=== PATIENT | male | born 1935 | race Caucasian/White ===

== ENCOUNTER 2016-07-14 04:09 | Observation (INO) | payer MEDICARE, OTHER ==
--- NOTE | ~2016-07-14 | HP ---
History And Physical [facility] [address] [place]. [address] NAME: SUSANNA PARMAR : 31 STATUS : ADM Mariaelena PAT#: [id number] AGE: 80 ADM/REG DATE : 07/14/16 MR#: [id number] REPORT SERV DATE: 07/14/16 DICTATED BY: SILVINO CHAPMAN DATE: 07/14/16 REPORT STATUS : Draft TRANSCRIBED BY: MODL DATE: 07/14/16 DATE OF ADMISSION: 07/14/2016 [employer]IVERY SPECIALIST: Luis Myers M.D. CHIEF COMPLAINT: Chest tightness. HISTORY OF PRESENT ILLNESS: A very pleasant 80-year-old white gentleman with identified CAD, not requiring PCI in 05/2015. The patient states that on 07/13 in the afternoon, he had an "indigestion" feeling in the center of his chest that did not radiate elsewhere, these symptoms occurred at rest. There was no exertional component described. He reports some associated shortness of breath. Denies nausea, diaphoresis, or dizziness. He does report some belching, but states that is unchanged for him. He describes the chest discomfort as a tightness. He reports two to three similar events over the past month. He does not have nitroglycerin available to him. No intervention or medication was taken at home. At its most intense, he rates the chest pain of 3 to 4/10 and it has remained constant, he describes it as a dull ache. There is seemingly no pattern reported, no change in activity, no exertional component described. The patient states he did do cardiac rehab for 3 months in late 2015 with no change in his shortness of breath or energy at that time. The patient self reports a personal history of a heart attack in 1993 with no intervention. History of stroke 08/2013 with no deficit. Denies history of PE or DVT. The patient denies any recent fever or chills. Describes rare palpitations that are transient in nature. No syncopal events. Denies PND or orthopnea. PAST MEDICAL HISTORY: 1. CAD. a. On 05/22/2015, cath by Dr. Yoder revealing 2 vessel CAD, not involving the proximal LAD with significant disease in the RCA and OM1 with [id number] collaterals supplying the RCA. Moderate LAD lesion with FFR of 0.82, EF of 55%. Medical management recommended. 2. Chronic atrial fibrillation, rate controlled on Eliquis. 3. History of stroke 08/2013, no deficit. 4. Hypertension. 5. Dyslipidemia. 6. Denies diabetes. 7. GERD. 8. Scoliosis. 9. Remote tobacco abuse. 10.Self reports SC in 1993, no intervention. SURGICAL HISTORY: 1. Bilateral knee surgery. 2. Right hip replacement. 3. Right shoulder replacement. 4. Bilateral carpal tunnel. History And Physical [address] [address] NAME: SUSANNA PARMAR : 31 STATUS : ADM Mariaelena PAT#: [id number] AGE: 80 ADM/REG DATE : 07/14/16 MR#: [id number] REPORT SERV DATE: 07/14/16 DICTATED BY: SILVINO CHAPMAN DATE: 07/14/16 REPORT STATUS : Draft TRANSCRIBED BY: EASTON DATE: 07/14/16 5. Left upper arm surgery muscle repair. 6. Cholecystectomy. SOCIAL HISTORY: He is , does not have any children. He is retired from [employer]. Does not have an exercise routine although he is active around his property. Quit smoking in 1951, consumes an occasional beer. Denies illicits. FAMILY HISTORY: No embolic events reported in first-degree relatives. A brother with atrial fibrillation. REVIEW OF SYSTEMS: A 14-point review of systems performed, significant for HPI. No other contributory diagnoses identified. ALLERGIES: NO KNOWN DRUG ALLERGIES. HOME MEDICINES: Eliquis 5 mg twice daily, vitamin C 1000 mg daily, Lasix 40 mg daily, glucosamine 1500 mg twice daily, metoprolol tartrate 50 mg twice daily, multivitamin daily, Prilosec 20 mg daily, rosuvastatin 10 mg daily, and Tylenol 2 tablets twice daily. PHYSICAL EXAMINATION: VITAL SIGNS: Bilateral blood pressures on arrival, right 113/69, left 109/70, pulse 56, respirations 10, temperature 97.6, O2 saturation 97% on room air, height 5 feet 6 inches, weight 138 pounds. BMI 22. GENERAL: Cooperative, in no apparent distress. HEENT: Pupils 2 mm, sclera nonicteric. Nares patent. Moist mucous membranes. No xanthelasma. NECK: Trachea midline, no thyromegaly. No JVD. No bruits. LYMPH: No cervical lymphadenopathy. No supraclavicular lymphadenopathy. RESPIRATORY: Unlabored respirations. Breath sounds clear bilaterally to posterior auscultation. No wheezes or rhonchi. Tender to palpation, midchest. CARDIOVASCULAR: Irregularly irregular rate with a variable S1 and S2. No murmur, rub, or gallop appreciated. Normal carotids. Trace ankle edema. ABDOMEN: Soft, nontender, nondistended, normal bowel sounds auscultated throughout. No organomegaly. SKIN: Warm, dry extremities. No pallor, or cyanosis. PSYCHIATRIC: Appropriate affect. Alert, oriented x3. LABORATORY DATA: Troponin 0.04 and 0.05, potassium 3.8, BUN 20, creatinine 1.02, glucose 90, magnesium 2.2, lipase 267. WBC 4.8, hemoglobin 12.7, hematocrit 37.0, platelet count 178,000, PT 18.3, INR 1.5. EKG atrial fib/flutter, LAD, LVH, inferior Q-waves, PRWP. Echo, 04/2015: EF of 55%. Moderate LVH. Mild . [id number] AV regurgitation with mild MR. MPI 04/2015: Gabriel stage 1, 3.47 minutes, 5 METS. No ischemia, frequent PVCs and 2 ventricular couplets noted. History And Physical [address] [place]. [address] NAME: SUSANNA PARMAR : 31 STATUS : ADM Mariaelena PAT#: [id number] AGE: 80 ADM/REG DATE : 07/14/16 MR#: [id number] REPORT SERV DATE: 07/14/16 DICTATED BY: SILVINO CHAPMAN DATE: 07/14/16 REPORT STATUS : Draft TRANSCRIBED BY: MODL DATE: 07/14/16 Cath 05/2015 (Paresh): RCA diffuse 90% with collaterals, 50% mid LAD with FFR of 0.82, medical management recommended. EF of 55%. ASSESSMENT AND PLAN: 1. Chest pain with atypical features and reproducible on exam. The patient will be held n.p.o. for probable MPI on 07/15/2016. We will hold Eliquis, discuss need for heparin bridge with rounding physician. If anything suggestive of ischemia, Cardiology referral will be initiated. Otherwise, the patient will be asked to follow up with PCP and Dr. Myers as appropriate, further recommendations forthcoming. 2. Coronary artery disease with identified 2 vessel disease, 05/2015. No history of PCI per the patient's report. Continue home medications. 3. Chronic atrial fibrillation, rate controlled. Consider heparin bridge, if Eliquis to be held for further cardiac testing such as need for cardiac catheterization. MPI 07/15/2016, we will resume Eliquis if cardiac cath not warranted. 4. Hypertension, well controlled. Continue home medications. 5. Dyslipidemia, continue statin. JAVI/MODL JESUS Walters, BREAKFAST ATTENDANT-BC / [id number] CC: JESUS Walters, BREAKFAST ATTENDANT-BC Beto Rudolph M.D. CPOU Luis Myers M.D.
[2016-07-14 00:55] LABS: BASOPHILS 0.8 %; BASOPHILS ABSOLUTE 0.04 10/3/uL (0.0-0.16); EOSINOPHILS 2.3 %; EOSINOPHILS ABSOLUTE 0.11 10/3/uL (0.0-0.53); HEMOGLOBIN 12.7 g/dL (13.6-17.8); IMMATURE GRANULOCYTES 0.2 %; IMMATURE GRANULOCYTES ABSOLUTE 0.01 10/3/uL (0.0-0.11); LYMPHOCYTES 33.7 %; LYMPHOCYTES ABSOLUTE 1.63 10/3/uL (0.67-4.30); MEAN CORPUS HGB CONC 34.3 g/dL (32.0-36.0); MEAN CORPUSCULAR HEMOGLOB 33.2 pg (26.0-34.0); MEAN CORPUSCULAR VOLUME 96.9 fL (80-100); MEAN PLATELET VOLUME 9.9 fL (9.2-13.0); MONOCYTES 9.9 %; MONOCYTES ABSOLUTE 0.48 10/3/uL (0.21-1.20); NEUTROPHILS 53.1 %; NEUTROPHILS ABSOLUTE 2.57 10/3/uL (2.02-8.40); PLATELET COUNT 178 10/3/uL (150-400); RBC DISTRIBUTION WIDTH 13.7 % (12.0-16.0); RED CELL COUNT 3.82 10/6/uL (4.7-6.1); WHITE BLOOD CELLS 4.8 10/3/uL (4.5-10.5)
[2016-07-14 00:58] LABS: MANUAL DIFF NO %
[2016-07-14 01:04] LABS: INTERNATIONAL NORMAL RATI 1.5 UNITS (-); PARTIAL THROMBO TIME 48.5 SEC (22.5-37.2); PROTIME (NOT ORD) 18.3 SEC (12.0-14.5)
[2016-07-14 01:11] LABS: BUN (BLOOD UREA NITROGEN) 20 MG/DL (6-23); CHEST PAIN PROFILE TAT 0 Hrs 22 Mins; CHLORIDE, SERUM 99 MMOL/L (96-112); CREATININE 1.02 MG/DL (0.70-1.30); GFR AFRICAN AMERICAN 79 ML/MIN (>=60); GFR NON AFRICAN AMERICAN 68 ML/MIN (>=60); GLUCOSE, SERUM 90 MG/DL (60-99); POTASSIUM, SERUM 3.8 MMOL/L (3.5-5.3); SODIUM, SERUM 134 MMOL/L (135-148); TROPONIN I 0.04 NG/ML (<0.05)
[2016-07-14 01:13] LABS: CALCIUM, SERUM 9.4 MG/DL (8.5-10.4); CO2 (CARBON DIOXIDE) 34 MMOL/L (24-34)
[2016-07-14 03:32] LABS: ALBUMIN 4.1 G/DL (3.5-5.0); ALKALINE PHOSPHATASE 144 U/L (45-117); DIRECT BILIRUBIN 0.3 MG/DL (0.0-0.4); INDIRECT BILIRUBIN(NOT ORDER) 0.4 MG/DL (0.1-0.9); SGOT(AST) 30 U/L (5-40); SGPT(ALT) 28 U/L (5-65); TOTAL BILIRUBIN 0.7 MG/DL (0-1.2); TOTAL PROTEIN 7.5 G/DL (6.0-8.5)
[~2016-07-14 04:09] MED LIST: ACIDOPHILU1 PO; ADVIL PO; CALTRAT600 PO; CELEBREX2 PO; CENTRUM TAB1 TAB PO; COSAMIN DS1 TAB PO; COUMADIN3 MG PO; COUMADIN4 MG PO; CRESTOR10 PO; CRESTOR5 MG PO; ELIQUIS 5 MG TAB5 MG PO; ESTRADIOL1 MG PO; FOSAMAX70 MG PO; GLUCCHONDR PO; GLUCOSAMINEPO PO; IBU400 PO; IMDUR30 PO; L20 PO; L40 PO; LOP50 PO; LOZOLTAB PO; MOBIC7.5 PO; MULTIVIT/MIN PO; MULTIVITAMI1 PO; NEUR100 PO; NEUR300 PO; NEXIUM40 PO; PLAQ200B PO; PRILO PO; PRILOSEC OTC20 MG PO; TYLENOL ARTH650 MG PO; ULTRAM50 PO; VASOTEC10 PO; VITC500 PO; ZETIA PO
[2016-07-14] MEDS ORDERED: GLUCOSAMINEPO PO (04:41)
[2016-07-14] MEDS ORDERED: MULTIPLE VIT PO (04:42)
[2016-07-14] MEDS ORDERED: LOP50 PO (04:43)
[2016-07-14] MEDS ORDERED: ELIQUIS 5 MG TAB5 MG PO (04:43)
[2016-07-14] MEDS ORDERED: L40 PO (04:44)
[2016-07-14] MEDS ORDERED: CRESTOR10 PO (04:46)
[2016-07-14] MEDS ORDERED: VITC500 PO (04:49)
[2016-07-14] MEDS ORDERED: PRILO PO (04:50)
[2016-07-15 08:47] LABS: BUN (BLOOD UREA NITROGEN) 14 MG/DL (6-23); CALCIUM, SERUM 9.2 MG/DL (8.5-10.4); CHLORIDE, SERUM 105 MMOL/L (96-112); CO2 (CARBON DIOXIDE) 30 MMOL/L (24-34); CREATININE 0.73 MG/DL (0.70-1.30); GFR AFRICAN AMERICAN 100 ML/MIN (>=60); GFR NON AFRICAN AMERICAN 86 ML/MIN (>=60); GLUCOSE, SERUM 89 MG/DL (60-99); SODIUM, SERUM 140 MMOL/L (135-148)
[2016-07-15] MEDS ORDERED: NITROSTAT0.4 MG SL (12:47)
== END 2016-07-15 13:40 | disposition home or self-care (01) ==
LOC: ER 04:09 → CDU1 04:35 → CDU2 04:54
PROVIDERS: Clinical Nurse Specialist; Specialist
DX: R07.89 Other chest pain (principal); I25.10 Atherosclerotic heart disease of native coronary artery without angina pectoris; I48.2 Chronic atrial fibrillation; I10 Essential (primary) hypertension; E78.5 Hyperlipidemia, unspecified; I25.2 Old myocardial infarction; K21.9 Gastro-esophageal reflux disease without esophagitis; E78.00 Pure hypercholesterolemia, unspecified; M19.90 Unspecified osteoarthritis, unspecified site; Z90.49 Acquired absence of other specified parts of digestive tract; Z98.890 Other specified postprocedural states; Z87.891 Personal history of nicotine dependence; Z86.73 Personal history of transient ischemic attack (TIA), and cerebral infarction without residual deficits; Z79.899 Other long term (current) drug therapy; Z98.41 Cataract extraction status, right eye; Z98.42 Cataract extraction status, left eye; Z96.1 Presence of intraocular lens
CPT/HCPCS: 71020; 78452; 80048; 80076; 83690; 83735; 84484; 85025; 85610; 85730; 93005; 93017; A9270-GY; A9502; G0378; J2785